=== PATIENT | female | born 1995 | race Caucasian/White ===

== ENCOUNTER 2024-04-28 17:30 | Inpatient (IN) ==
[2024-04-28 21:22] LABS: Urine Benzodiazepine Screen None Detected (None Detect); Urine Cannabinoids Screen None Detected (None Detect); Urine Opiates Screen None Detected (None Detect)
[2024-04-28] MEDS ORDERED: Al Hydrox/Mg Hydrox/Simet LIQ 30 ML UDC PO PRN (23:05)
[2024-04-28] MEDS ORDERED: Albuterol HFA INHALER 8 gm MDI INH PRN (23:06)
[2024-04-28 23:30] VITALS: BP 99/66
[2024-04-29 08:18] LABS: HDL Cholesterol 44.4 mg/dL
[2024-04-29] MEDS: Vitamin THERAPEUTIC TAB PO SCH (09:09)
[2024-04-29] MEDS: DULoxetine DR 20 mg CAP PO SCH (15:02)
== END 2024-04-29 18:05 | disposition home or self-care (01) | DRG 881 ==
LOC: ED 17:30 → BSU 22:56
PROVIDERS: ADMIT Psychiatry & Neurology Psychiatry; ATTEND Psychiatry & Neurology Psychiatry